=== PATIENT | female | born 1965 | race African-American/Black ===

== ENCOUNTER 2019-05-28 07:59 | Emergency (ER) | payer OTHER | END 2019-05-28 11:47 | disposition home or self-care (01) | LOC: ER 07:59 | DX: B34.9 Viral infection, unspecified (principal); G43.909 Migraine, unspecified, not intractable, without status migrainosus; Z88.2 Allergy status to sulfonamides; Z86.69 Personal history of other diseases of the nervous system and sense organs; Z90.710 Acquired absence of both cervix and uterus; Z98.890 Other specified postprocedural states | CPT/HCPCS: 99281 ==

== ENCOUNTER 2019-06-25 12:11 | Emergency (ER) | payer BC, OTHER ==
[~2019-06-25] VITALS: Ht 170.2 cm; Wt 83.0 kg
[2019-06-25] MEDS ORDERED: IPRATROPIUM BROMIDE (0.02%) 0.5MG/2.5ML NEB HHN STA (12:38)
[2019-06-25] MEDS ORDERED: IBUPROFEN 600MG TABLET PO STA (12:38)
[2019-06-25] MEDS ORDERED: ALBUTEROL (0.083%) 2.5MG/3ML NEB HHN STA (12:38)
[2019-06-25 13:50] VITALS: BP 123/70
== END 2019-06-25 13:52 | disposition home or self-care (01) ==
LOC: ER 12:11
DX: J20.9 Acute bronchitis, unspecified (principal); R05 Cough; Z98.890 Other specified postprocedural states; Z90.710 Acquired absence of both cervix and uterus
CPT/HCPCS: 71045; 94640; 99283; J7611; Z7610